=== PATIENT | female | born 1975 | race Two or more races ===

== ENCOUNTER 2024-06-28 13:46 | Emergency (ER) | payer OTHER ==
[~2024-06-28] VITALS: Ht 152.4 cm; Wt 75.7 kg
[2024-06-28 13:53] VITALS: O2SAT 98
[2024-06-28] MEDS ORDERED: ACET1TAB23 PO (14:44)
[2024-06-28] MEDS ORDERED: SULF1TAB48 PO (14:44)
--- NOTE | 2024-06-28 14:47 | NUR ---
Patient discharged to home in stable condition. Written and verbal after care instructions given. Patient verbalizes understanding of instructions. Stressed follow up or return to ER for worsening s/s.
== END 2024-06-28 14:48 | disposition home or self-care (01) ==
LOC: ER 13:47
DX: I83.029 Varicose veins of left lower extremity with ulcer of unspecified site (principal); L97.929 Non-pressure chronic ulcer of unspecified part of left lower leg with unspecified severity; Z79.1 Long term (current) use of non-steroidal anti-inflammatories (NSAID); Z79.899 Other long term (current) drug therapy
CPT/HCPCS: A4606; A4663

== ENCOUNTER 2024-07-15 20:51 | Emergency (ER) | payer OTHER ==
[~2024-07-15] VITALS: Ht 162.6 cm; Wt 74.8 kg
[~2024-07-15 20:51] MED LIST: ACET1TAB23 PO; SULF1TAB48 PO
[2024-07-15] MEDS ORDERED: CLINDAMYCIN 600 MG PIGGYBACK**ER OMNI IV ONE (22:13)
[2024-07-15 22:20] LABS: BASOPHILS # (AUTO) 0.6 K/UL (0.0-0.2); BASOPHILS % (AUTO) 4.6 % (0.0-2.0); EOSINOPHILS # (AUTO) 0.1 K/uL (0.0-0.7); HEMATOCRIT 38.6 % (31.2-41.9); HEMOGLOBIN 12.8 g/dL (10.9-14.3); LYMPHOCYTES # (AUTO) 3.7 K/uL (0.8-4.8); LYMPHOCYTES % (AUTO) 28.8 % (20.5-51.5); MEAN CORPUSCULAR HEMOGLOBIN 31.1 uug (24.7-32.8); MEAN CORPUSCULAR HGB CONC 33 g/dL (32.3-35.6); MEAN CORPUSCULAR VOLUME 93.3 fL (75.5-95.3); MONOCYTES # (AUTO) 0.8 K/uL (0.1-1.30); MONOCYTES % (AUTO) 6.1 % (0.0-11.0); NEUTROPHILS # (AUTO) 7.6 K/uL (1.8-8.9); NEUTROPHILS % (AUTO) 59.5 % (38.5-71.5); PLATELET COUNT (AUTO) 338 K/uL (179-408); RED BLOOD CELL COUNT(AUTO) 4.13 MIL/uL (3.63-4.92); RED CELL DISTRIBUTION WIDTH 14.1 % (12.3-17.7); WHITE BLOOD COUNT (AUTO) 12.8 K/uL (3.8-11.8)
[2024-07-15 22:21] LABS: DIFFERENTIAL COMMENT 1
[2024-07-15 22:27] LABS: CREATININE 0.7 mg/dL (0.6-1.3); POTASSIUM 3.7 mmol/L (3.5-5.1)
[2024-07-15] MEDS: CLINDAMYCIN PHOSPHATE IV 600 MG in IV DEXTROSE 5% 100 ML IV ONE (22:30)
[2024-07-15 22:33] LABS: ALBUMIN 3.7 g/dL (3.4-5.0); BILIRUBIN,TOTAL 0.4 mg/dL (0.2-1.0); TOTAL PROTEIN, SERUM 8.1 g/dL (6.4-8.2)
[2024-07-15 22:41] LABS: C-REACTIVE PROTEIN 1.08 mg/dL (0.00-0.30)
[2024-07-16] MEDS ORDERED: CLIN300C12 PO (01:16)
[2024-07-16 01:32] VITALS: BP 130/85; TEMP 98.7; O2SAT 99
== END 2024-07-16 01:32 | disposition home or self-care (01) ==
LOC: ER 20:52
DX: L03.113 Cellulitis of right upper limb (principal); R03.0 Elevated blood-pressure reading, without diagnosis of hypertension; Z79.1 Long term (current) use of non-steroidal anti-inflammatories (NSAID); Z79.899 Other long term (current) drug therapy
CPT/HCPCS: 99284; 96365; 80053; 85025; 86140; 36415; 73070; J3490 ×2; A4606; A4663

== ENCOUNTER 2024-10-07 08:39 | Emergency (ER) | payer OTHER ==
[~2024-10-07] VITALS: Ht 152.4 cm; Wt 69.4 kg
[~2024-10-07 08:39] MED LIST changes: -ACET1TAB23 PO; +CLIN300C12 PO; -SULF1TAB48 PO
[2024-10-07] MEDS ORDERED: NEOMY/BACITRA/POLYMYXIN B OINT UD PACKET TP ONE (09:22)
[2024-10-07] MEDS ORDERED: SULF1TAB48 PO (09:25)
[2024-10-07] MEDS ORDERED: CEPH500C2 PO (09:25)
[2024-10-07] MEDS ORDERED: IBUP-1955 PO (09:25)
[2024-10-07 09:34] VITALS: BP 137/90; O2SAT 99
[2024-10-07] MEDS: NEOMY/BACITRA/POLYMYXIN B OINT UD PACKET TP ONE (09:36)
== END 2024-10-07 09:38 | disposition home or self-care (01) ==
LOC: ER 08:39
DX: L02.415 Cutaneous abscess of right lower limb (principal); L03.115 Cellulitis of right lower limb; Z79.899 Other long term (current) drug therapy
CPT/HCPCS: A4606; A4663